=== PATIENT | male | born 1990 | race African-American/Black ===

== ENCOUNTER 2020-02-14 19:07 | Emergency (ER) | payer OTHER ==
[2020-02-14 19:19] VITALS: BP 123/72; PULSE 85; BMI 23.8
[2020-02-14] MEDS ORDERED: LACTATED RINGERS SOLUTION 1000 ML INFUS.BAG IV ONE (19:26)
[2020-02-14] MEDS ORDERED: ACETAMINOPHEN 1000 MG/100 ML VIAL (NON FORMULARY) IVPB ONE (19:26)
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
[2020-02-14] MEDS ORDERED: LACTATED RINGERS SOLUTION 1,000 ML/1,000 ML INFUS.BAG IV SCH (19:45)
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
[2020-02-14] MEDS ORDERED: ACETAMINOPHEN INJECTION 100 ML IVPB ONE (20:03)
[2020-02-14 20:40] VITALS: TEMP 99.6
== END 2020-02-14 21:31 | disposition short-term general hospital (02) ==
LOC: JER 19:07
PROC: 3E033NZ Introduction of Analgesics, Hypnotics, Sedatives into Peripheral Vein, Percutaneous Approach (ICD-10-PCS; principal; 2020-02-14)
DX: T20.00XA Burn of unspecified degree of head, face, and neck, unspecified site, initial encounter (principal)
CPT/HCPCS: 99285-25; J0131